=== PATIENT | female | born 1965 | race Caucasian/White ===

== ENCOUNTER 2020-07-30 20:40 | Observation (INO) | payer BC, OTHER ==
[2020-07-30] MEDS ORDERED: SODIUM CHLORIDE 0.9% 500 ML 500 ML IV STA (21:03)
[2020-07-30] MEDS ORDERED: ASPIRIN 81 MG PO STA (21:03)
[2020-07-30] MEDS ORDERED: NITROGLYCERIN SL TABS 0.4 MG TAB SUBLINGUAL STA (21:14)
[2020-07-30 21:34] LABS: Basophils % (A) 1 %; Eosinophils # (A) 0.1 k/uL (0-0.7); Eosinophils % (A) 1 %; HCT 40.3 % (34.0-46.0); HGB 13.5 gm/dL (11.4-16.0); Lymphocytes # (A) 1.5 k/uL (1.0-4.8); Lymphocytes % (A) 24 %; MCH 30.4 pg (25.0-35.0); MCHC 33.6 g/dL (31.0-37.0); MCV 90.5 fL (80.0-100.0); Mean Platelet Volume 7.9; Monocytes # (A) 0.4 k/uL (0-1.0); Monocytes % (A) 6 %; Neutrophils # (A) 4.1 k/uL (1.3-7.7); Neutrophils % (A) 66 %; Platelet Count 252 k/uL (150-450); RBC 4.45 m/uL (3.80-5.40); RDW 12.1 % (11.5-15.5); WBC 6.1 k/uL (3.8-10.6)
[2020-07-30 21:43] LABS: INR 0.9 (<1.2); Prothrombin Time 9.9 sec (9.0-12.0)
[2020-07-30 21:50] LABS: Albumin 4.7 g/dL (3.5-5.0); Calcium 10.2 mg/dL (8.4-10.2); Potassium 3.9 mmol/L (3.5-5.1); Total Bilirubin 0.6 mg/dL (0.2-1.3); Total Protein 7.6 g/dL (6.3-8.2)
--- NOTE | 2020-07-30 21:55 | ED ---
General Adult HPI - General Source: patient, RN notes reviewed, old records reviewed Mode of arrival: ambulatory <Vijay Owusu - Last Filed: 07/30/20 23:09> <KevinDede Denisha - Last Filed: 08/02/20 15:34> - General Chief complaint: Chest Pain Stated complaint: Chest Pain Time Seen by Provider: 07/30/20 20:58 - History of Present Illness Initial comments: 54-year-old female patient with no prior cardiac history of present CBC evaluation of left parasternal chest pain which has been radiating to her back is sharp described as somewhat pleuritic in nature. Patient reports that she has been having aching in her left arm since Friday. Denies any other acute complaints this time. Systemic: Pt denies fatigue, fever/chills, rash. Pt denies weakness, night sweats, weight loss. Neuro: Pt denies headache, visual disturbances, syncope or pre-syncope. HEENT: Pt denies ocular discharge or irritation, otalgia, rhinorrhea, pharyngitis or notable lymphadenopathy. Cardiopulmonary: Pt denies heart palpitations, dyspnea on exertion. Abdominal/GI: Pt denies abdominal pain, n/v/d. : Pt denies dysuria, burning w/ urination, frequency/urgency. Denies new onset urinary or bowel incontinence. MSK: Pt denies myalgia, loss of strength or function in extremities. Neuro: Pt denies new onset weakness, paresthesias. (Vijay Owusu) - Related Data Home Medications Medication Instructions Recorded Confirmed traZODone HCL 50 mg PO HS PRN 07/30/20 07/30/20 Previous Rx's Medication Instructions Recorded Acetaminophen Tab [Tylenol] 650 mg PO Q6HR PRN tab 07/31/20 HYDROcodone/APAP 5-325MG [[place] 1 each PO Q6HR PRN #9 tab 07/31/20 5-325] Pregabalin [Lyrica] 75 mg PO BID #60 cap 07/31/20 valACYclovir HCL [Valtrex] 1,000 mg PO TID 14 Days #52 tablet 07/31/20 Allergies Allergy/AdvReac Type Severity Reaction Status Date / Time No Known Allergies Allergy Verified 07/30/20 22:58 Review of Systems ROS Other: All systems not noted in ROS Statement are negative. <Vijay Owusu - Last Filed: 07/30/20 23:09> ROS Other: All systems not noted in ROS Statement are negative. <Dede Brown - Last Filed: 08/02/20 15:34> ROS Statement: Those systems with pertinent positive or pertinent negative responses have been documented in the HPI. Past Medical History History of Any Multi-Drug Resistant Organisms: None Reported Additional Past Surgical History / Comment(s): Right ovary removal 1992, mastoplexy, Past Psychological History: Anxiety Smoking Status: Former smoker Past Alcohol Use History: Daily Past Drug Use History: None Reported <Vijay Owusu - Last Filed: 07/30/20 23:09> General Exam <Vijay Owusu - Last Filed: 07/30/20 23:09> - General Exam Comments Initial Comments: Constitutional: NAD, AOX3, Pt has pleasant affect. HEENT: NC/AT, trachea midline, neck supple, no lymphadenopathy. Posterior pharynx non erythematous, without exudates. External ears appear normal, without discharge. Mucous membranes moist. Eyes PERRLA, EOM intact. There is no scleral icterus. No pallor noted. Cardiopulmonary: RRR, no murmurs, rubs or gallops, no JVD noted. Lungs CTAB in anterior and posterior berry. No peripheral edema. Abdominal exam: Abdomen soft and non-distended. Abdomen non-tender to palpation in all 4 quadrants. Bowel sounds active in LLQ. No hepatosplenomegaly. No ecchymosis Neuro: CN II-XII grossly intact. No nuchal rigidity. No raccon eyes, no pablo sign, no hemotympanum. No cervical spinal tenderness. MSK: No posterior calf tenderness bilaterally, homans sign negative bilaterally. Posterior tibialis and radial pulse +2 bilaterally. Sensation intact in upper and lower extremities. Full active ROM in upper and lower extremities, 5/5 stregnth. Derm: Rash left upper extremity about 2 x 2 centimeters consistent with shingles. (Vijay Owusu) Course Vital Signs 07/30/20 07/30/20 07/30/20 20:46 21:27 22:13 Temperature 98.2 F 97.6 F Pulse Rate 80 72 Respiratory 16 18 Rate Blood Pressure 207/105 166/102 154/103 O2 Sat by Pulse 99 99 Oximetry 10/04/20 23:05 Temperature 97.5 F L Pulse Rate 77 Respiratory 18 Rate Blood Pressure 160/100 O2 Sat by Pulse 99 Oximetry Medical Decision Making - Lab Data Result diagrams: 07/30/20 21:20 07/30/20 21:20 <Vijay Owusu - Last Filed: 07/30/20 23:09> - Lab Data Result diagrams: 07/30/20 21:20 07/30/20 21:20 <Dede Brown - Last Filed: 08/02/20 15:34> - Medical Decision Making 55-year-old female patient presented to ED for evaluation of chest pain left parasternal patient does described a sharp radiating to the back. Patient will signs wishes by hypertension. Patient was properly brought to CAT scan for a CT angiography. No dissection no PE patient pain has subsided. EKG is nonischemic. Troponin is negative. Patient will also have a vesicular rash left arm consistent with shingles. Patient be admitted for serial troponins and cardiology evaluation. Case discussed with Dr. Brown. (Vijay Owusu) I was available for consultation in the emergency department. The history and physical exam were done by the midlevel provider. I was consulted for this patients care. I reviewed the case with the midlevel provider and based on their presentation of the patient, I agree with the assessment, medical decision making and plan of care as documented. Chart was dictated using [employer] dictation software. Attempts were made to correct any dictation errors however some typographical errors may persist. (Dede Brown) - Lab Data Lab Results 07/30/20 07/30/20 07/30/20 Range/Units 21:20 21:20 21:20 WBC 6.1 (3.8-10.6) k/uL RBC 4.45 (3.80-5.40) m/uL Hgb 13.5 (11.4-16.0) gm/dL Hct 40.3 (34.0-46.0) % MCV 90.5 (80.0-100.0) fL MCH 30.4 (25.0-35.0) pg MCHC 33.6 (31.0-37.0) g/dL RDW 12.1 (11.5-15.5) % Plt Count 252 (150-450) k/uL Neutrophils % 66 % Lymphocytes % 24 % Monocytes % 6 % Eosinophils % 1 % Basophils % 1 % Neutrophils # 4.1 (1.3-7.7) k/uL Lymphocytes # 1.5 (1.0-4.8) k/uL Monocytes # 0.4 (0-1.0) k/uL Eosinophils # 0.1 (0-0.7) k/uL Basophils # 0.0 (0-0.2) k/uL PT 9.9 (9.0-12.0) sec INR 0.9 (<1.2) APTT 25.0 (22.0-30.0) sec Sodium 134 L (137-145) mmol/L Potassium 3.9 (3.5-5.1) mmol/L Chloride 103 (98-107) mmol/L Carbon Dioxide 24 (22-30) mmol/L Anion Gap 7 mmol/L BUN 13 (7-17) mg/dL Creatinine 0.94 (0.52-1.04) mg/dL Est GFR (CKD-EPI)AfAm 81 (>60 ml/min/1.73 sqM) Est GFR (CKD-EPI)NonAf 70 (>60 ml/min/1.73 sqM) Glucose 108 H (74-99) mg/dL Calcium 10.2 (8.4-10.2) mg/dL Magnesium 2.0 (1.6-2.3) mg/dL Total Bilirubin 0.6 (0.2-1.3) mg/dL AST 29 (14-36) U/L ALT 15 (4-34) U/L Alkaline Phosphatase 110 (38-126) U/L Troponin I (0.000-0.034) ng/mL NT-Pro-B Natriuret Pep pg/mL Total Protein 7.6 (6.3-8.2) g/dL Albumin 4.7 (3.5-5.0) g/dL 07/30/20 07/30/20 Range/Units 21:20 21:20 WBC (3.8-10.6) k/uL RBC (3.80-5.40) m/uL Hgb (11.4-16.0) gm/dL Hct (34.0-46.0) % MCV (80.0-100.0) fL MCH (25.0-35.0) pg MCHC (31.0-37.0) g/dL RDW (11.5-15.5) % Plt Count (150-450) k/uL Neutrophils % % Lymphocytes % % Monocytes % % Eosinophils % % Basophils % % Neutrophils # (1.3-7.7) k/uL Lymphocytes # (1.0-4.8) k/uL Monocytes # (0-1.0) k/uL Eosinophils # (0-0.7) k/uL Basophils # (0-0.2) k/uL PT (9.0-12.0) sec INR (<1.2) APTT (22.0-30.0) sec Sodium (137-145) mmol/L Potassium (3.5-5.1) mmol/L Chloride (98-107) mmol/L Carbon Dioxide (22-30) mmol/L Anion Gap mmol/L BUN (7-17) mg/dL Creatinine (0.52-1.04) mg/dL Est GFR (CKD-EPI)AfAm (>60 ml/min/1.73 sqM) Est GFR (CKD-EPI)NonAf (>60 ml/min/1.73 sqM) Glucose (74-99) mg/dL Calcium (8.4-10.2) mg/dL Magnesium (1.6-2.3) mg/dL Total Bilirubin (0.2-1.3) mg/dL AST (14-36) U/L ALT (4-34) U/L Alkaline Phosphatase (38-126) U/L Troponin I <0.012 (0.000-0.034) ng/mL NT-Pro-B Natriuret Pep 91 pg/mL Total Protein (6.3-8.2) g/dL Albumin (3.5-5.0) g/dL Disposition Is patient prescribed a controlled substance at d/c from ED?: No <Vijay Owusu - Last Filed: 07/30/20 23:09> <Dede Brown - Last Filed: 08/02/20 15:34> Clinical Impression: Chest pain, Shingles Disposition: ADMITTED IP TO THIS HOSP Condition: Serious
--- NOTE | 2020-07-30 22:48 | CT ---
EXAMINATION TYPE: CT angio thor/abd pel aorta DATE OF EXAM: 07/30/2020 COMPARISON: HISTORY: Chest pain with shortness of breath. CT DLP: 687 mGycm Automated exposure control for dose reduction was used. CONTRAST: Performed with IV Contrast, patient injected with 100 mL of Isovue 300. There are 3-D post processed images. The lungs are clear of consolidation. There is no evidence of a pulmonary mass. There is no pleural e ffusion. There is no mediastinal adenopathy. There are no hilar masses. Thoracic aorta is intact. The re is no aneurysm or dissection. Pulmonary arteries appear intact without evidence of filling defect. There are a few bilateral bronchial lymph nodes measuring up to 1 cm. The celiac artery and superior mesenteric artery appear normal. There is bilateral arterial flow in t he renal arteries. There is arterial flow in the iliac and femoral arteries. There is no evidence of hemodynamic stenosis. There is no evidence of arterial aneurysm or dissection in the abdomen and pelv is. Liver spleen stomach pancreas gallbladder appear normal. There is small hiatal hernia. The bile ducts are not dilated. Kidneys have normal size and contour. There is no hydronephrosis. There is no retro peritoneal adenopathy. Bladder distends smoothly. Uterus is anteverted. There is no free fluid in the pelvis. Thoracic and lumbar spine appear intact. Bony pelvis appears intact. There are sigmoid diver ticula. There is no sign of diverticulitis. There is no mesenteric edema. There is no ascites or free air. There is no bowel obstruction. Appendi x is not seen. There is no sign of thickened appendix. IMPRESSION: No evidence of pulmonary embolism. No evidence of thoracic or abdominal aortic aneurysm or dissection. No evidence of hemodynamic stenos is. There are some nonspecific small bilateral bronchial lymph nodes.
[2020-07-30] MEDS ORDERED: NITROGLYCERIN SL TABS 0.4 MG TAB SUBLINGUAL PRN (22:49)
[2020-07-30] MEDS ORDERED: SODIUM CHLORIDE 0.9% 500 ML 500 ML IV ONE (22:52)
[2020-07-31] MEDS: valACYclovir HCL 1,000 MG TABLET PO SCH ×2 (00:06→09:11)
[2020-07-31] MEDS ORDERED: ONDANSETRON 4 MG/2 ML VIAL IVP PRN (05:30)
[2020-07-31 06:34] LABS: Cholesterol 217 mg/dL (<200); HDL Cholesterol 88 mg/dL (40-60); LDL Cholesterol,Calculated 117 mg/dL (0-99); Triglycerides 60 mg/dL (<150)
[2020-07-31 08:27] VITALS: BP 131/87; PULSE 86; RESP 16; TEMP 98.2
[2020-07-31] MEDS ORDERED: ASPIRIN 325 MG TAB PO SCH (09:00)
[2020-07-31] MEDS ORDERED: ASPIRIN 81 MG PO SCH (09:00)
--- NOTE | 2020-07-31 10:19 | P.CRDCN ---
History of Present Illness Consult date: 07/31/20 Consult reason: chest pain Chief complaint: Chest pain History of present illness: This is a pleasant 54-year-old female with no prior documented history of hypertension, no diabetes, no hyperlipidemia, history of diverticulitis, nonsmoker, patient does drink wine, and states that over the past few months she's been drinking much more wine than she will presents to the hospital on this occasion with symptoms of left-sided pressure and heaviness in the left breast area, symptoms worsen significantly with taking a deep breath. She also has some discomfort and uncomfortable feeling in her left arm. She is under significant amount of stress recently, she is here from out of town taking care of her relatives. It is also noted that the patient has a small rash area in her left axilla region as well as 2 separate small areas on her left arm. It was suspected that she may have shingles and she was initiated on Valtrex as an outpatient. Patient also states that she is a runner, although since December asn't been running as much as usual. She is quite physically active with no symptoms during that time. EKG on presentation here showed a normal sinus rhythm with a right bundle branch block pattern and nonspecific ST-T wave changes. A CT angios of the thoracic and abdomen was performed, did not reveal any evidence of a pulmonary embolism, no evidence of thoracic or abdominal aortic aneurysm or dissection. No evidence of hemodynamic stenosis. There are some nonspecific small bilateral bronchial lymph nodes noted. Blood pressure 148/80, heart rate in the 70s, 98% on room air. Troponins have been negative 3. White blood cell count 6.1, hemoglobin 13.5, platelet count 252. Sodium 134, potassium 3.9, BUN 13, creatinine 0.9. Cholesterol 217, triglycerides 60, HDL 88, LDL 117. At the time of my examination this morning, patient continues to complain of chest pain and pressure in the left breast area, especially noticeable and worse with taking a deep breath. Past Medical History Additional Past Medical History / Comment(s): Diverticulitis in 2012 and 2014 History of Any Multi-Drug Resistant Organisms: None Reported Additional Past Surgical History / Comment(s): Right ovary removal 1992, mastoplexy, Past Psychological History: Anxiety Smoking Status: Former smoker Past Alcohol Use History: Daily Past Drug Use History: None Reported Medications and Allergies Home Medications Medication Instructions Recorded Confirmed Type traZODone HCL [TraZODone HCl] 50 mg PO HS PRN 07/30/20 07/30/20 History Allergies Allergy/AdvReac Type Severity Reaction Status Date / Time No Known Allergies Allergy Verified 07/30/20 22:58 Physical Exam Vitals: Vital Signs Temp Pulse Pulse Resp BP BP Pulse Ox 07/31/20 08:25 98.2 F 86 16 131/87 99 07/31/20 03:16 71 18 07/31/20 03:00 97.7 F 71 18 149/88 98 07/31/20 00:29 71 18 07/30/20 23:43 99 07/30/20 23:31 98.1 F 71 18 168/99 99 07/30/20 23:05 97.5 F L 77 18 160/100 99 07/30/20 22:13 97.6 F 72 18 154/103 99 07/30/20 21:27 166/102 07/30/20 20:46 98.2 F 80 16 207/105 99 Intake and Output 07/30/20 07/31/20 07/31/20 22:59 06:59 14:59 Intake Total 0 Balance 0 Intake: Oral 0 Other: Voiding Method Toilet Toilet # Voids 1 1 Weight 64.864 kg 64.864 kg PHYSICAL EXAMINATION: GENERAL: 54-year-old female in no acute distress at the time of my examination HEENT: Head is atraumatic, normocephalic. Pupils equal, round. Sclera anicteric. Conjunctiva are clear. Mucous membranes of the mouth are moist. Neck is supple. There is no elevated jugular venous pressure. No carotid bruit is heard. HEART EXAMINATION: Heart S1, S2 normal. No murmur or gallop heard. CHEST EXAMINATION: Lungs are clear to auscultation and precussion. Positive chest wall tenderness is noted on palpation or with deep breathing. ABDOMEN: Soft, nontender. Bowel sounds are heard. No organomegaly noted. EXTREMITIES: 2+ peripheral pulses with no evidence of peripheral edema and no calf tenderness noted. NEUROLOGIC patient is awake, alert and oriented 3 . . Results 07/30/20 21:20 07/30/20 21:20 Cardiac Enzymes 07/30/20 07/30/20 07/30/20 Range/Units 21:20 21:20 23:48 AST 29 (14-36) U/L Troponin I <0.012 <0.012 (0.000-0.034) ng/mL 07/31/20 Range/Units 02:57 AST (14-36) U/L Troponin I <0.012 (0.000-0.034) ng/mL Coagulation 07/30/20 Range/Units 21:20 PT 9.9 (9.0-12.0) sec APTT 25.0 (22.0-30.0) sec Lipids 07/31/20 Range/Units 02:57 Triglycerides 60 (<150) mg/dL Cholesterol 217 H (<200) mg/dL HDL Cholesterol 88 H (40-60) mg/dL CBC 07/30/20 Range/Units 21:20 WBC 6.1 (3.8-10.6) k/uL RBC 4.45 (3.80-5.40) m/uL Hgb 13.5 (11.4-16.0) gm/dL Hct 40.3 (34.0-46.0) % Plt Count 252 (150-450) k/uL Comprehensive Metabolic Panel 07/30/20 Range/Units 21:20 Sodium 134 L (137-145) mmol/L Potassium 3.9 (3.5-5.1) mmol/L Chloride 103 (98-107) mmol/L Carbon Dioxide 24 (22-30) mmol/L BUN 13 (7-17) mg/dL Creatinine 0.94 (0.52-1.04) mg/dL Glucose 108 H (74-99) mg/dL Calcium 10.2 (8.4-10.2) mg/dL AST 29 (14-36) U/L ALT 15 (4-34) U/L Alkaline Phosphatase 110 (38-126) U/L Total Protein 7.6 (6.3-8.2) g/dL Albumin 4.7 (3.5-5.0) g/dL Current Medications Generic Name Dose Route Start Last Admin Trade Name Freq PRN Reason Stop Dose Admin Aspirin 81 mg 07/31/20 09:00 07/31/20 09:12 Aspirin 81 Mg PO 81 mg DAILY KELLEN Administration Nitroglycerin 0.4 mg 07/30/20 22:49 07/30/20 23:59 Nitroglycerin Sl Tabs 0.4 Mg Tab SUBLINGUAL 0.4 mg Q5M PRN Administration Chest Pain Ondansetron HCl 4 mg 07/31/20 05:30 07/31/20 05:35 Ondansetron 4 Mg/2 Ml Vial IVP 4 mg Q6HR PRN Administration Nausea And Vomiting Valacyclovir HCl 1,000 mg 07/30/20 23:15 07/31/20 09:11 Valacyclovir Hcl 1,000 Mg Tablet PO 1,000 mg TID KELLEN Administration Intake and Output 07/30/20 07/31/20 07/31/20 22:59 06:59 14:59 Intake Total 0 Balance 0 Intake: Oral 0 Other: Voiding Method Toilet Toilet # Voids 1 1 Weight 64.864 kg 64.864 kg 07/30/20 21:20 07/30/20 21:20 EKG Interpretations (text) EKG shows a normal sinus rhythm with a right bundle branch block pattern and nonspecific ST-T wave changes Assessment and Plan Plan: Assessment and plan #1 atypical left chest discomfort, pleuritic/musculoskeletal in nature, troponi ns negative 3, EKG shows normal sinus rhythm with right bundle branch block pattern and nonspecific ST-T wave changes #2 history of diverticulitis #3 recent increase in alcohol intake #4 small rash area noted in left axilla and left arm, rule out shingles Plan We will decrease the patient's aspirin to 81 mg daily, we will also obtain a sed rate, echocardiogram with Doppler study and stress echo. Further recommendations will be dependent on the findings of those tests the patient's overall clinical course. DNP note has been reviewed, I agree with a documented findings and plan of care. Patient was seen and examined.
[2020-07-31] MEDS ORDERED: HYDROcodone/APAP 5-325MG 1 EACH TAB PO PRN (11:33)
[2020-07-31] MEDS ORDERED: ACETAMINOPHEN TAB 325 MG TAB PO PRN (11:33)
[2020-07-31] MEDS ORDERED: PREGABALIN 75 MG CAP PO SCH (12:00)
--- NOTE | 2020-07-31 12:15 | ECHOF ---
Referral Reason:chest pain MEASUREMENTS -------- HEIGHT: 170.2 cm WEIGHT: 64.9 kg BP: 149/88 RVIDd: 3.4 cm (< 3.3) IVSd: 1.1 cm (0.6 - 1.1) LVIDd: 4.2 cm (3.9 - 5.3) LVPWd: 0.9 cm (0.6 - 1.1) IVSs: 1.4 cm LVIDs: 3.0 cm LVPWs: 1.4 cm LA Diam: 2.6 cm (2.7 - 3.8) LAESV Index (A-L): 15.74 ml/m MV EXCURSION: 15.184 mm (> 18.000) MV EF SLOPE: 83 mm/s (70 - 150) EPSS: 0.7 cm MV E Ye: 0.77 m/s MV DecT: 163 ms MV A Ye: 0.83 m/s MV E/A Ratio: 0.93 RAP: 5.00 mmHg RVSP: 21.56 mmHg FINDINGS -------- Sinus rhythm. This was a technically good study. The left ventricular size is normal. Left ventricular wall thickness is normal. Overall left vent ricular systolic function is normal with, an EF between 60 - 65 %. The right ventricle is mildly enlarged. Normal LA size by volume 22+/-6 ml/m2. The right atrium is normal in size. Interatrial and interventricular septum intact. The aortic valve is trileaflet and appears structurally normal. The mitral valve is normal. Mild tricuspid regurgitation present. Right ventricular systolic pressure is normal at < 35 mmHg. There is no pulmonic regurgitation present. The aortic root size is normal. Normal inferior vena cava with normal inspiratory collapse consistent with estimated right atrial pre ssure of 5 mmHg. There is no pericardial effusion. CONCLUSIONS -------- 1. The left ventricular size is normal. 2. Left ventricular wall thickness is normal. 3. Overall left ventricular systolic function is normal with, an EF between 60 - 65 %. 4. The right ventricle is mildly enlarged. 5. Normal LA size by volume 22+/-6 ml/m2. 6. Mild tricuspid regurgitation present. 7. There is no pericardial effusion. PRINTING PLATE CLERK: Shakira Jo RDCS
--- NOTE | 2020-07-31 23:18 | HP ---
HISTORY AND PHYSICAL COMBINED HISTORY AND PHYSICAL AND DISCHARGE SUMMARY: DATE OF SERVICE: 07/31/2020 CHIEF COMPLAINT: Chest pain. HISTORY OF PRESENT ILLNESS: This 54-year-old woman with a past medical history of multiple medical problems, including history of diverticulitis and anxiety, being followed by a primary physician in [place], was taking care of 2 aunts were are sick in [place]. The patient is living in [place]. The patient was complaining of chest pain on the left side for several days, and now the pain has radiated to the left arm. It is severe pain. The patient also had multiple skin lesions suggestive of of herpes zoster. Patient was admitted for further evaluation and treatment. There is no history of any fever, rigor or chills. No history of headache, loss of consciousness, seizures. Cardiology has seen the patient and recommended possible evaluation for the chest pains. PAST MEDICAL HISTORY: Diverticulitis, right toe removal, anxiety. The patient also had apparently 2 episodes of chickenpox despite taking the vaccine. HOME MEDICATIONS: Trazodone, Valtrex, Lyrica, Tylenol. ALLERGIES: NONE. FAMILY HISTORY: No history of heart disease or strokes in the family. SOCIAL HISTORY: Previous history of smoking. No current smoking. Occasional alcohol intake. The alcohol intake has increased recently because of stress; according to her, multiple glasses of wine. REVIEW OF SYSTEMS: ENT: No diminished hearing. No diminished vision. CARDIOVASCULAR SYSTEM: As mentioned earlier. RESPIRATORY SYSTEM: As mentioned earlier. GI: No nausea, vomiting. : No dysuria or retention. NERVOUS SYSTEM: No numbness, weakness. ALLERGY/IMMUNOLOGY: No asthma, hayfever. MUSCULOSKELETAL: As mentioned earlier. HEMATOLOGY/ONCOLOGY: No history of anemia. ENDOCRINE: No history of diabetes, hypothyroidism. CONSTITUTIONAL: As mentioned earlier. DERMATOLOGY: Negative. RHEUMATOLOGY: Negative. PSYCHIATRY: As mentioned earlier. PHYSICAL EXAMINATION: Patient alert and oriented x3. Pulse 86, blood pressure 131/87, respirations 16, temperature 98.2, pulse ox 99% on room air. HEENT: Conjunctivae normal. NECK: No jugular venous distention. CARDIOVASCULAR SYSTEM: S1, S2 muffled. RESPIRATORY SYSTEM: Breath sounds diminished at the bases. No rhonchi. No crackles. ABDOMEN: Soft, non-tender. No mass palpable. LEGS: No edema. No swelling. NERVOUS SYSTEM: Higher functions as mentioned earlier. Moves all 4 limbs. No focal motor or sensory deficit. LYMPHATICS: No lymph node palpable in neck, axillae or groin. SKIN: Significant lesions of herpes zoster in the T1 segments present in the anterior part. Diffuse skin lesions. JOINTS: No active deforming arthropathy. LABS: CBC ntdsodium 134. Chloride is 217, LDL is 117. ASSESSMENT: 1. Left-sided chest pain, possibly secondary to acute herpes zoster C5-T1. 2. Rule out coronary artery disease. 3. Hyponatremia. 4. Hypercholesterolemia. 5. History of diverticulitis. 6. History of anxiety. 7. History of nicotine dependence. 8. History of right toe removal and . RECOMMENDATIONS AND DISCUSSION: In this 54-year-old woman who presented with multiple complex medical problems, we will monitor the patient closely, continue the current medications, continue with symptomatic treatment. Otherwise, myocardial infarction ruled out. The patient has significant herpes zoster lesions. I recommend a course of Valtrex as well as symptomatic treatment. Follow closely with primary physician. Cardiology evaluation as outpatient. Possible stress test as an outpatient once the patient is improved from the herpes zoster. On exam, vitals are stable. CARDIOVASCULAR SYSTEM: S1, S2 muffled. ABDOMEN: Soft. NERVOUS SYSTEM: No focal deficit. DISCHARGE ADVICE AND MEDICATIONS: 1. Cardiac diet. 2. Activity limited until followup. 3. Follow up with Dr. Tonya Mohan in 1-2 days. 4. Follow up with Dr. Garcia as recommended. 5. Trazodone 50 mg at bedtime p.r.n. 6. Lyrica 75 mg p.o. b.i.d. for 2 weeks. 7. [place] 5 mg q.6 p.r.n. 8. Tylenol p.r.n. 9. Valtrex 1 gram p.o. t.i.d. for 2 weeks. Once again, the patient will be discharged in stable condition with guarded prognosis. MMODL / IJN: [id number] / MTDD
== END 2020-07-31 13:18 ==
LOC: EC 20:40 → 3NCARDOBS 22:57
PROVIDERS: ADMIT Hospitalist; ATTEND Hospitalist
DX: R07.9 Chest pain, unspecified (principal); R07.89 Other chest pain; M79.602 Pain in left arm; B02.9 Zoster without complications; E87.1 Hypo-osmolality and hyponatremia; E78.00 Pure hypercholesterolemia, unspecified; F41.9 Anxiety disorder, unspecified; F43.9 Reaction to severe stress, unspecified; R07.81 Pleurodynia; I45.10 Unspecified right bundle-branch block; R94.31 Abnormal electrocardiogram [ECG] [EKG]; K57.90 Diverticulosis of intestine, part unspecified, without perforation or abscess without bleeding; Z98.890 Other specified postprocedural states; Z90.721 Acquired absence of ovaries, unilateral; Z87.891 Personal history of nicotine dependence; Z89.421 Acquired absence of other right toe(s); Z86.19 Personal history of other infectious and parasitic diseases; Z79.899 Other long term (current) drug therapy
CPT/HCPCS: 93005 ×2; 96374; 96361; 99285; 36415; 93306; 83880; 80061; 80053; 85652; 83735; 84484 ×2; 85025; 85610; 85730; 71275; 74174; G0378 ×2; J2405; Q9967